=== PATIENT | male | born 1985 | race Caucasian/White ===

== ENCOUNTER 2020-05-28 20:48 | Emergency (ER) | payer BC ==
[~2020-05-28] VITALS: Ht 180.3 cm; Wt 67.1 kg
[2020-05-28] MEDS ORDERED: CLEOCIN HCL300 MG PO (23:03)
[2020-05-28] MEDS ORDERED: HYDROCODON-ACE1 EAC8 PO (23:03)
[2020-05-28 23:14] VITALS: BP 134/70
== END 2020-05-28 23:16 | disposition home or self-care (01) ==
LOC: M.ERS 20:48
DX: K04.7 Periapical abscess without sinus (principal)

== ENCOUNTER 2020-06-14 13:01 | Emergency (ER) | payer BC ==
[~2020-06-14] VITALS: Ht 180.3 cm; Wt 65.8 kg
[~2020-06-14 13:01] MED LIST: CLEOCIN HCL300 MG PO; HYDROCODON-ACE1 EAC8 PO
[2020-06-14] MEDS ORDERED: KEFLEX500 M1 PO (13:10)
[2020-06-14] MEDS ORDERED: NORCO 5-325 TA1 EAC2 PO (14:34)
[2020-06-14] MEDS ORDERED: AUGMENTIN 875-1 EACH PO (14:34)
[2020-06-14 14:52] VITALS: BP 122/72
== END 2020-06-14 14:54 | disposition home or self-care (01) ==
LOC: M.ERS 13:01
DX: S81.811A Laceration without foreign body, right lower leg, initial encounter (principal); S61.432A Puncture wound without foreign body of left hand, initial encounter; Z79.899 Other long term (current) drug therapy; W54.0XXA Bitten by dog, initial encounter; Y93.89 Activity, other specified; Y92.89 Other specified places as the place of occurrence of the external cause; Y99.9 Unspecified external cause status

== ENCOUNTER 2020-06-18 16:29 | Inpatient (IN) | payer BC ==
[~2020-06-18] VITALS: Ht 180.3 cm; Wt 65.8 kg
[~2020-06-18 16:29] MED LIST changes: +AUGMENTIN 875-1 EACH PO; +KEFLEX500 M1 PO; +NORCO 5-325 TA1 EAC2 PO
[2020-06-18 16:43] VITALS: BP 116/79
[2020-06-18] MEDS ORDERED: NABUMETONE 500500 M1 PO (16:47)
[2020-06-18] MEDS ORDERED: CIPRO500 M1 PO ×2 (16:47→16:48)
[2020-06-18] MEDS ORDERED: CLINDAMYCIN HC300 MG PO (16:48)
[2020-06-18 17:55] LABS: ABSOLUTE BASOPHILS 0.1 thou/uL (0.0-0.2); ABSOLUTE EOSINOPHILS 0.5 thou/uL (0.0-0.7); ABSOLUTE LYMPHOCYTES 2.1 thou/uL (0.8-5.3); ABSOLUTE MONOCYTES 0.7 thou/uL (0.0-1.2); ABSOLUTE NEUTROPHILS 4.2 thou/uL (1.6-8.1); BASOPHILS 0.9 %; EOSINOPHILS 6.3 %; HEMATOCRIT 39.7 % (42.0-52.0); HEMOGLOBIN 13.5 gm/dL (14.0-18.0); LYMPHOCYTES 28.3 %; MCH 30.2 pg (26.0-34.0); MCHC 34.1 g/dL (28.0-37.0); MCV 88.4 fL (80.0-100.0); MONOCYTES 9.3 %; MPV 9.4 fl. (7.2-11.1); NUCLEATED RBCS 0 /100WBC; PLATELET COUNT* 228 thou/uL (150-400); POLYS 55.2 %; RBC 4.49 mil/uL (4.50-6.00); RDW-CV 13.5 % (10.5-14.5); WBC 7.6 thou/uL (4.0-11.0)
[2020-06-18 18:05] LABS: CALCIUM 9.1 mg/dL (8.5-10.1); CREATININE 0.9 mg/dL (0.6-1.3)
[2020-06-18 18:07] LABS: APTT 25.4 Seconds (25.0-31.3)
[2020-06-18 18:10] LABS: ALBUMIN 3.6 g/dL (3.4-5.0); TOTAL BILIRUBIN 0.2 mg/dL (<0.1-1.0); TOTAL PROTEIN 7.3 g/dL (6.4-8.2)
[2020-06-18 19:00] VITALS: BP 116/62
[2020-06-18 19:17] VITALS: BP 116/62
--- NOTE | 2020-06-18 22:43 | NUR ---
PATIENT REFUSED MRSA SWAB, HE SAYS HE WAS SWABBED FOR COVID EARLIER AND HIS NOSTRILS HURT AND HE DIDNT WANT ANYTHING ELSE SHOVED UP IN THEM. I WILL PASS THIS INFORMATION ONTO DAY SHIFT ON 06/19 TO POSSIBLY ATTEMPT TO COLLECT AGAIN. FOR NOW HE IS REFUSING.
[2020-06-19 04:21] LABS: HEMATOCRIT 37.1 % (42.0-52.0); HEMOGLOBIN 12.6 gm/dL (14.0-18.0); MCH 30.1 pg (26.0-34.0); MCHC 33.9 g/dL (28.0-37.0); MCV 88.7 fL (80.0-100.0); MPV 9.2 fl. (7.2-11.1); RBC 4.19 mil/uL (4.50-6.00); RDW-CV 13.6 % (10.5-14.5); WBC 6.9 thou/uL (4.0-11.0)
[2020-06-19 04:54] LABS: ALBUMIN 3.3 g/dL (3.4-5.0); CALCIUM 8.5 mg/dL (8.5-10.1); CREATININE 0.9 mg/dL (0.6-1.3); MAGNESIUM 1.9 mg/dL (1.8-2.4); POTASSIUM 3.9 mmol/L (3.5-5.1); TOTAL BILIRUBIN 0.2 mg/dL (<0.1-1.0); TOTAL PROTEIN 6.7 g/dL (6.4-8.2)
--- NOTE | 2020-06-19 05:46 | NUR ---
PATIENT CAN GET TO RESTROOM WITH CRUTCHES HE BROUGHT. PAIN SEEMS WELL MANAGED, HE DID TAKE A HYDROCODONE AT BEDTIME AND SLEPT ALL EVENING. RECEIVED ALL ABX AND MEDS SCHEDULED. HE DID REFUSE MRSA SWAB BUT WILL ATTEMPT AGAIN DAYTIME. HE STATES HE ALREADY HAD COVID TEST AND DID NOT WANT ANYTHING ELSE SHOVED UP HIS NOSE. HE REFUSED IBRUPROFEN AT NIGHT AND MORNING BECAUSE HE STATED IT INTERFERED WITH ANOTHER MED HE HAD TAKEN EARLIER THE PREVIOUS MORNING THAT HE SAID HIS DOCTOR DID NOT WANT HIM TAKING IT WITH IBRUPROFEN AND COULD NOT REMEMBER THE NAME OF THE DRUG. WILL CONTINUE TO RECEIVE ABX, PICS IN CHART OF RIGHT ANKLE. WILL CONTINUE PLAN OF CARE.
[2020-06-19 07:45] VITALS: BP 106/66
--- NOTE | 2020-06-19 10:40 | NUR ---
WOUND NURSE: PATIENT SEEN TODAY PERTAINING TO DOG BITE ON THE RIGHT LOWER LEG. AFFECTED AREA MEASURES 4.5 X 4.5 CM. THERE ARE 2 LESIONS WHICH ARE CLOSED WITH 3 SUTURES EACH. THERE ARE STABLE BLACKENED CRUSTS ALONG THE INCISION LINE AND NO DRAINAGE, MINIMAL SWELLING OR REDNESS, PATIENT NOT REPORTING PAIN AT TIME OF THIS ASSESSMENT. PLAN TO LEAVE THE AFFECTED AREAS OPEN TO AIR THERE IS NO DRAINAGE. INSTRUCTED PATIENT LESIONS MAY BE COVERED WITH DRY 4X4'S THEN WRAPPED WITH KERLEX ROLL GAUZE, THEN SECURED WITH TAPE IF HE CHOOSES. PATIENT WANTS TO LEAVE OPEN TO AIR AT THIS TIME. PATIENT INSTRUCTED ON CLEANSING PROCEDURE AND CARE OF WOUND WITH GOOD UNDERSTANDING ACHIEVED. PATIENT ALSO UNDERSTANDS THE IMPORTANCE OF USE OF ANTIBIOTIC THERAPY PRESCRIBED TO PREVENT FUTURE INFECTION.
--- NOTE | 2020-06-19 12:29 | NUR ---
CM Admission assessemnt: Information from patient who lives with girlfriend. No past hx HH, SNF, or Rehab. Independent in [place] and Drives.Pt presently using crutches due to dog bite injury to lower extremity. No CM needs identified at this time. Will follow until discharged
--- NOTE | 2020-06-19 14:19 | NUR ---
Spoke to Patient about script for Knee Scooter. This not being supplied by PT. Options list for local resources given with cost per day, week, month, or purchase option reviewed and given to pt. Also shared best calderón was on [employer] if wanted to purchase. Pt stated would just use his crutches while on limited weight bearing to RLE.
[2020-06-19 15:39] VITALS: BP 107/58
--- NOTE | 2020-06-19 16:03 | NUR ---
A&OX 4, UP AD CURTIS IN ROOM WITH CRUTCHES. SL LEFT AC INTACT AND PATENT. RIGHT LOWER LEG DOG BITE WOUND WITH STITCHES INTACT. SOME REDNESS AROUND AREA BUT PATIENT STATED IT LOOKS BETTER AND NOT RED TODAY. REG HT, LUNGS CLEAR, ROOM AIR , +BS X 4 QUADS, PEDAL PULSES PRESENT YRN. ULTRA SOUND RIGHT LEG NEGATIVE. NO OTHER C/O. WILL CONT. TO MONITOR.
[2020-06-19 20:00] VITALS: BP 112/53
--- NOTE | 2020-06-20 07:28 | NUR ---
PT A&OX4, ON ROOM AIR, VSS, PT UP AD CURTIS, NO C/O PAIN THIS SHIFT. PT SLEPT WELL. HOURLY ROUNDINGS COMPLETE. REPORT GIVEN AND CARE TRNSFERED TO DAY SHIFT NURSE AT APPROX [id number].
[2020-06-20 08:00] VITALS: BP 106/50
[2020-06-20 15:49] VITALS: BP 113/57
--- NOTE | 2020-06-20 17:19 | NUR ---
Pt AOx4. Up ad fariha in room, ambulating halls periodically with crutches. Pt c/o mild pain, managing with PO norco and sched ibuprofen. Pt tolerating IV antibiotics. Hourly rounding complete. Will continue to monitor
[2020-06-20 20:00] VITALS: BP 114/47
--- NOTE | 2020-06-21 06:08 | NUR ---
Alert and oriented x 4. Up with his crutches and he is not bearing weight on his rt leg. He is up independently and is doing very well. Rt lower extremity is slightly swollen with 2 puncture sites that have 1 stitch and are scabbed over and open to air. There is a small amount of pinkness surrounding the puncture sites. He did take a shower last evening. He refused his lovenox last evening and he has been. he says that he gets up enough and is very active and doesn't need it. I did try to educate but he said that he is not at risk for a blood clot. Vitals are stable, Roomair sat 98%. He had hydrocodone at bedtime. He is sleeping well at this time.
[2020-06-21 07:10] VITALS: BP 104/52
[2020-06-21] MEDS ORDERED: HYDROCODON-ACE1 EAC7 PO (09:44)
[2020-06-21] MEDS ORDERED: CLINDAMYCIN HC300 MG PO (09:44)
[2020-06-21] MEDS ORDERED: AUGMENTIN 875-1 EACH PO (09:44)
[2020-06-21 09:55] VITALS: BP 104/52
[2020-06-21 11:20] VITALS: BP 104/52
[2020-06-21 11:40] VITALS: BP 104/52
--- NOTE | 2020-06-21 11:41 | NUR ---
PT GIVEN DISCHARGE INFORMATION, CARE NOTES, AND PRESCRIPTIONS. IV REMOVED. STITCHES REMOVED. PT BELONGINGS GATHERED. PT LEFT VIA WHEELCHAIR WITH NURSING STAFF TO HOME. FALL RISK PRECAUTIONS IN PLACE. HOURLY ROUNDING COMPLETED.
== END 2020-06-21 11:42 | disposition home or self-care (01) | DRG 603 ==
LOC: M.ERS 16:29 → M.TBA-ER 17:31 → M.ORTHSURG 17:31
PROVIDERS: Family Medicine; ADMIT Internal Medicine; ATTEND Internal Medicine
DX: L03.115 Cellulitis of right lower limb (principal); R65.10 Systemic inflammatory response syndrome (SIRS) of non-infectious origin without acute organ dysfunction; S81.851A Open bite, right lower leg, initial encounter; W54.0XXA Bitten by dog, initial encounter; Y93.89 Activity, other specified; Y92.89 Other specified places as the place of occurrence of the external cause; Y99.8 Other external cause status; Z20.828 Contact with and (suspected) exposure to other viral communicable diseases